=== PATIENT | male | born 1970 | race Caucasian/White ===

== ENCOUNTER 2022-05-31 12:22 | Day surgery (SDCO) | payer MEDICARE ==
[~2022-05-31] VITALS: Ht 172.7 cm; Wt 79.1 kg
[2022-05-31 13:24] LABS: BASOPHIL 0.4 % (0-2); HCT 37.3 % (42.0-52.0); HGB 11.9 g/dl (13.2-18.0); MCH 25.7 pg (25.0-31.0); MCHC 31.9 g/dL (32.0-36.0); MCV 80.6 fL (78.0-100.0); MONOCYTE 9.6 % (0-12); MPV 9.7 fL (6.0-9.5); NEUTROPHIL 70.9 % (41-80); PLT 215 K/uL (150-400); RBC 4.63 M/uL (4.70-6.00); RDW 16.4 % (11.5-14.0); WBC 8.05 K/uL (4.0-10.5)
[2022-05-31 13:29] LABS: CREATININE 0.84 mg/dL (0.67-1.17); POTASSIUM 4.8 mmol/L (3.5-5.1)
[2022-05-31 13:30] LABS: ALBUMIN 2.1 g/dL (3.4-5.0); BILIRUBIN - TOTAL 0.1 mg/dL (0.2-1.0); GLOBULIN (CALCULATION) 3.3 g/dL; TOTAL PROTEIN 5.4 g/dL (6.4-8.2)
[2022-05-31 13:56] LABS: CORONAVIRUS 2019 SARS-COV-2 NEGATIVE (NEGATIVE); INFLUENZA A NAA NEGATIVE (NEGATIVE)
[2022-05-31] MEDS ORDERED: CYMBALTA 30MG C30 MG PO (20:32)
[2022-05-31] MEDS ORDERED: FLOMAX0.4 MG PO (20:33)
[2022-05-31] MEDS ORDERED: LEXAPRO 10MG TA10 MG PO (20:33)
[2022-05-31 21:23] LABS: BILIRUBIN NEGATIVE (NEGATIVE); BLOOD 1+ Ery/uL (NEGATIVE); CLARITY CLEAR (CLEAR); COLOR YELLOW (YELLOW); GLUCOSE (U) 3+ mg/dL (NORMAL); LEUKOCYTES NEGATIVE Leu/uL (NEGATIVE); NITRITE NEGATIVE (NEGATIVE); PROTEIN 3+ mg/dL (NEGATIVE); UROBILINOGEN 0.2 mg/dL (0.2-1.0)
[2022-05-31 21:34] LABS: BACTERIA TRACE
[2022-05-31 21:35] LABS: AMPHETAMINES NEGATIVE (NEGATIVE); BARBITURATES NEGATIVE (NEGATIVE); ECSTASY (MDMA) NEGATIVE (NEGATIVE); MARIJUANA (THC) NEGATIVE (NEGATIVE); METHADONE NEGATIVE (NEGATIVE); OPIATES NEGATIVE (NEGATIVE); OXYCODONE NEGATIVE (NEGATIVE)
[2022-05-31] MEDS ORDERED: LEVEMIR VI100 UNITS/ SC (21:49)
[2022-06-01 06:27] LABS: BASOPHIL 0.8 % (0-2); EOSINOPHIL 1.2 % (0-5); HCT 35.9 % (42.0-52.0); HGB 11.2 g/dl (13.2-18.0); LYMPHOCYTE 23.2 % (15-48); MCHC 31.2 g/dL (32.0-36.0); MCV 83.3 fL (78.0-100.0); MONOCYTE 10.5 % (0-12); NEUTROPHIL 63.9 % (41-80); NRBC 0; PLT 229 K/uL (150-400); RBC 4.31 M/uL (4.70-6.00); RDW 16.8 % (11.5-14.0); WBC 11.3 K/uL (4.0-10.5)
[2022-06-01 06:49] LABS: BUN/CREAT RATIO (CALC) 25.5 RATIO; CREATININE 0.98 mg/dL (0.67-1.17); MAGNESIUM 1.9 mg/dL (1.8-2.4); POTASSIUM 4.3 mmol/L (3.5-5.1)
[2022-06-01] MEDS ORDERED: PLAVIX75 MG PO (12:28)
[2022-06-01] MEDS ORDERED: BUMEX 1MG TABLET1 MG PO (12:28)
[2022-06-01] MEDS ORDERED: ASPIRIN EC81 MG PO (12:28)
[2022-06-01] MEDS ORDERED: TOPROL XL 25MG25 MG PO (12:28)
[2022-06-01] MEDS ORDERED: COZAAR50 MG PO (12:28)
--- NOTE | 2022-06-01 13:08 | NUR ---
06/01/22 Mr. Soni is independent in the home and community. He recently sold his home and is living in a hotel while he looks for an apartment. He has a PCP at [facility] in [place]. Mr. Soni reports to have a Medicare D prescription plan. - No interventions are needed at this time.
== END 2022-06-01 14:45 | disposition home or self-care (01) ==
LOC: FER 12:22 → FMS 14:38
PROVIDERS: Nurse Practitioner Family; ADMIT Internal Medicine
DX: I11.0 Hypertensive heart disease with heart failure (principal); I50.9 Heart failure, unspecified; I16.0 Hypertensive urgency; E11.65 Type 2 diabetes mellitus with hyperglycemia; E11.40 Type 2 diabetes mellitus with diabetic neuropathy, unspecified; R80.9 Proteinuria, unspecified; I25.10 Atherosclerotic heart disease of native coronary artery without angina pectoris; I25.2 Old myocardial infarction; J44.9 Chronic obstructive pulmonary disease, unspecified; F17.210 Nicotine dependence, cigarettes, uncomplicated; Z20.822 Contact with and (suspected) exposure to COVID-19; Z91.14 Patient's other noncompliance with medication regimen; Z95.5 Presence of coronary angioplasty implant and graft
CPT/HCPCS: 36415; 71045; 80048; 80053; 80305; 81001; 83036; 83735; 83880; 84484; 85025; 85379; 93005; 94640; G0378; J1650; J1940; U0002